=== PATIENT | female | born 1995 | race Caucasian/White ===

== ENCOUNTER 2018-02-04 11:09 | Emergency (ER) | payer BC ==
[2018-02-04 13:21] VITALS: BP 134/87
--- NOTE | 2018-02-04 14:24 | UC ---
Throat Pain/Nasal Andrew HPI - HPI Summary HPI Summary: sore throat for 2 days, body aches - History of Current Complaint Chief Complaint: UCGeneralIllness Stated Complaint: SORE THROAT Time Seen by Provider: 02/04/18 13:05 Hx Obtained From: Patient Hx Last Menstrual Period: 01/11/18 ?: No Onset/Duration: Sudden Onset, Lasting Days - 2 Severity: Moderate Pain Intensity: 4 Pain Scale Used: 0-10 Numeric - R Cough: None - Allergies/Home Medications Allergies/Adverse Reactions: Allergies Allergy/AdvReac Type Severity Reaction Status Date / Time No Known Allergies Allergy Verified 02/04/18 13:20 PMH/Surg Hx/FS Hx/Imm Hx Previously Healthy: Yes - Surgical History Surgical History: None - Family History Known Family History: Positive: None - Social History Occupation: Student Lives: With Family Alcohol Use: Weekly Substance Use Type: None Smoking Status (MU): Never Smoked Tobacco Review of Systems Constitutional: Negative Skin: Negative Eyes: Negative ENT: Sore Throat Respiratory: Negative Cardiovascular: Negative Gastrointestinal: Negative Genitourinary: Negative Motor: Negative Neurovascular: Negative Musculoskeletal: Negative Neurological: Negative Psychological: Negative Is Patient Immunocompromised?: No All Other Systems Reviewed And Are Negative: Yes Physical Exam Triage Information Reviewed: Yes Appearance: Well-Appearing, Well-Nourished, Pain Distress - mild Vital Signs: Initial Vital Signs Temp 98.1 F 02/04/18 13:16 Pulse 95 02/04/18 13:16 Resp 18 02/04/18 13:16 BP 134/87 02/04/18 13:16 Pulse Ox 100 02/04/18 13:16 Vital Signs Reviewed: Yes Eye Exam: Normal Eyes: Positive: Conjunctiva Clear ENT Exam: Normal ENT: Positive: Normal ENT inspection, Hearing grossly normal, Pharynx normal, TMs normal, Tonsillar swelling, Uvula midline. Negative: Nasal congestion, Nasal drainage, Tonsillar exudate, Trismus, Muffled voice, Hoarse voice, Dental tenderness, Sinus tenderness Dental Exam: Normal Neck exam: Normal Neck: Positive: Supple, Nontender, Enlarged Nodes @ - anterior cervical Respiratory Exam: Normal Respiratory: Positive: Chest non-tender, Lungs clear, Normal breath sounds, No respiratory distress, No accessory muscle use Cardiovascular Exam: Normal Cardiovascular: Positive: RRR, No Murmur, Pulses Normal, Brisk Capillary Refill Musculoskeletal Exam: Normal Musculoskeletal: Positive: Strength Intact, ROM Intact, No Edema Neurological Exam: Normal Neurological: Positive: Alert, Muscle Tone Normal Psychological Exam: Normal Skin Exam: Normal Diagnostics - Laboratory Diagnostic Studies Completed/Ordered: RST (-) Throat Pain/Nasal Course/Dx - Course Assessment/Plan: Prednisone burst dose, lab studies CBC mono spot, Tylenol ibuprofen for pain. Sprays and lozenges for comfort follow with PCP in [place] early this week - Differential Dx/Diagnosis Provider Diagnoses: viral pharyngitis Discharge - Sign-Out/Discharge Documenting (check all that apply): Discharge/Admit/Transfer - Discharge Plan Condition: Stable Disposition: HOME Prescriptions: predniSONE TAB* [Deltasone TAB*] 40 mg PO DAILY 4 Days #8 tab Patient Education Materials: Pharyngitis (ED), Viral Syndrome (ED) Referrals: No Primary Care Phys,NOPCP [Primary Care Provider] - Additional Instructions: We will have your mono spot and CBC results back Monday afternoon. We will call you if you're Monospot is positive. Please call us late Monday afternoon if you want to get confirmed your lab studies. Follow up with your primary care doctor in [place] this week. I prescribed her some prednisone which will decrease the swelling and inflammation in her throat will help with pain take it with a small amount of food - Billing Disposition and Condition Condition: STABLE Disposition: HOME
[2018-02-05 10:55] LABS: ABS Basophils 0.1 10^3/ul (0-0.2); ABS Eosinophils 0.3 10^3/ul (0-0.6); ABS Lymphocytes 1.7 10^3/ul (1.0-4.8); ABS Monocytes 1.2 10^3/ul (0-0.8); ABS Neutrophils 8.7 10^3/ul (1.5-7.7); ABS Nucleated RBC 0 10^3/ul; Eosinophil % 2.4 % (0-6); Hematocrit 41 % (35-47); Hemoglobin 13.8 g/dl (12.0-16.0); Lymphocyte % 13.9 % (25-47); Mean Corpuscular HGB Conc 34 g/dl (31-36); Mean Corpuscular Hemoglobin 30 pg (27-31); Mean Corpuscular Volume 88 fL (80-97); Mean Platelet Volume 9.4 um3 (7.4-10.4); Nucleated Red Blood Cells % 0.1; Platelet Count 205 10^3/ul (150-450); Red Blood Count 4.68 10^6/ul (4.0-5.4); Red Cell Distribution Width 14 % (10.5-15)
== END 2018-02-04 14:19 | disposition home or self-care (01) ==
LOC: UCCORT 11:09
DX: J02.8 Acute pharyngitis due to other specified organisms (principal)
CPT/HCPCS: 36415; 85025; 86308; 87651; 99202; G0463